=== PATIENT | male | born 1985 | race Caucasian/White ===

== ENCOUNTER → 2020-07-13 | Outpatient (CLI) | payer OTHER ==
--- NOTE | 2020-07-13 15:43 | US ---
EXAMINATION TYPE: US scrotum with doppler. DATE OF EXAM: 07/13/2020 COMPARISON: NONE CLINICAL HISTORY: 35-year-old male N50.8 SCROTUM PAIN. Edema rt side lump TECHNIQUE: Grayscale and color Doppler Duplex imaging performed of the scrotum. FINDINGS: EXAM MEASUREMENTS: TESTICLES: Right Testicle: 4.1 x 2.5 x 2.8 cm Left Testicle: 3.8 x 2.5 x 2.9 cm EPIDIDYMIS HEAD: Right Epididymis: .7 x .9 cm with a cystic area seen .7 cm. Left Epididymis: .9 x .9 x .8 cm Doppler performed to assess for testicular vascularity; good bilateral color flow and waveforms are s een. There is no evidence of testicular torsion. Presence of hydroceles: Trace on both sides Presence of varicoceles: No IMPRESSION: 1. No sonographic evidence for testicular torsion or epididymoorchitis. 2. Trace bilateral hydroceles. 3. A 7 mm right epididymal head cyst incidentally noted.
== END | disposition home or self-care (01) ==
LOC: RADUSWWP 14:54
PROVIDERS: ATTEND Urology
DX: N50.82 Scrotal pain (principal)
CPT/HCPCS: 76870; 93975